=== PATIENT | male | born 2000 | race Hispanic/Latino ===

== ENCOUNTER 2020-11-03 04:48 | Emergency (ER) | payer OTHER ==
[~2020-11-03] VITALS: Ht 167.6 cm; Wt 108.9 kg
[2020-11-03 04:55] VITALS: BP 133/97
[2020-11-03] MEDS ORDERED: ACETAMINOPHEN WITH CODEINE 1 TAB TAB PO SCH (07:10)
[2020-11-03] MEDS ORDERED: LIDOCAINE HCL 1% 20 ML VIAL INJ SCH (07:10)
== END 2020-11-03 07:56 | disposition home or self-care (01) ==
LOC: EDH 04:48
DX: S60.351A Superficial foreign body of right thumb, initial encounter (principal); W45.8XXA Other foreign body or object entering through skin, initial encounter; Y93.89 Activity, other specified; Y92.89 Other specified places as the place of occurrence of the external cause; Y99.8 Other external cause status
CPT/HCPCS: 10120